=== PATIENT | male | born 1985 ===

== ENCOUNTER 2017-03-17 12:24 | Emergency (ER) | payer MEDICAID, OTHER ==
[2017-03-17 13:06] VITALS: RESP 16; BMI 23.6
[2017-03-17] MEDS ORDERED: Sodium Chloride 0.9% 1,000 ML IV STA ×2 (13:29→13:40)
--- NOTE | 2017-03-17 14:02 | ED PDOC ---
Arrival/HPI - General Chief Complaint: GI Problem Time Seen by Provider: 03/17/17 13:28 Historian: Patient - History of Present Illness Narrative History of Present Illness (Text): 03/17/17 14:03 A 31 year old male presents to the emergency department complaining of abdominal pain and vomiting for the past two days. Patient reports he was drinking three days ago, fell asleep without eating and when he woke up the next morning was vomiting. Notes hematemesis and generalized weakness but denies any other complaints at this time. Patient came to emergency department last year for similar symptoms after drinking excessive amounts of alcohol. Patient reports he didn't follow up with waitstaff. Reports to taking medications for nausea. Admits to occasionally drinking. PMD: Dr. Ruiz Symptom Onset: Sudden Symptom Course: Unchanged Activities at Onset: Rest Context: Home Past Medical History - Provider Review Nursing Documentation Reviewed: Yes - Infectious Disease Hx of Infectious Diseases: None - Tetanus Immunization Tetanus Immunization: Unknown - Past Medical History Past Medical History: Non-Contributing - Cardiac Hx Cardiac Disorders: No - Pulmonary Hx Asthma: Yes - Neurological Hx Neurological Disorder: No - HEENT Hx HEENT Disorder: No - Renal Hx Renal Disorder: No - Endocrine/Metabolic Hx Endocrine Disorders: No - Hematological/Oncological Hx Blood Disorders: No - Integumentary Hx Eczema: Yes - Musculoskeletal/Rheumatological Hx Falls: No - Gastrointestinal Hx Gastrointestinal Disorders: No - Genitourinary/Gynecological Hx Genitourinary Disorders: No - Psychiatric Hx Depression: No Hx Emotional Abuse: No Hx Physical Abuse: No Hx Substance Use: Yes - Past Surgical History Past Surgical History: No Previous - Anesthesia Hx Anesthesia: No Hx Anesthesia Reactions: No Hx Malignant Hyperthermia: No - Suicidal Assessment Feels Threatened In Home Enviroment: No Family/Social History - Physician Review Nursing Documentation Reviewed: Yes Family/Social History: No Known Family HX Smoking Status: Former Smoker Hx Alcohol Use: Yes Hx Substance Use: Yes Substance used: cannabis Hx Substance Use Treatment: No Allergies/Home Meds Allergies/Adverse Reactions: Allergies shellfish derived Allergy (Verified 08/12/16 19:37) RASH Review of Systems - Physician Review All systems were reviewed & negative as marked: Yes - Review of Systems Constitutional: Other (generalized weakness) Gastrointestinal: Abdominal Pain, Nausea, Vomiting, Hematemesis Physical Exam Vital Signs Reviewed: Yes Vital Signs Temp Pulse Resp BP Pulse Ox 03/17/17 17:05 98 F 82 16 140/90 99 03/17/17 14:30 76 16 165/90 H 98 03/17/17 13:02 98.2 F 56 L 16 183/94 H 99 Temperature: Afebrile Blood Pressure: Hypertensive Pulse: Bradycardic Respiratory Rate: Normal Appearance: Positive for: Well-Appearing, Non-Toxic, Comfortable Pain Distress: None Mental Status: Positive for: Alert and Oriented X 3 - Systems Exam Head: Present: Atraumatic, Normocephalic Pupils: Present: PERRL Extroacular Muscles: Present: EOMI Conjunctiva: Present: Normal Mouth: Present: Moist Mucous Membranes Neck: Present: Normal Range of Motion Respiratory/Chest: Present: Clear to Auscultation, Good Air Exchange. No: Respiratory Distress, Accessory Muscle Use Cardiovascular: Present: Regular Rate and Rhythm, Normal S1, S2. No: Murmurs Abdomen: Present: Tenderness (epigastric), Normal Bowel Sounds. No: Distention , Peritoneal Signs Back: Present: Normal Inspection Upper Extremity: Present: Normal Inspection. No: Cyanosis, Edema Lower Extremity: Present: Normal Inspection. No: Edema Neurological: Present: GCS=15, CN II-XII Intact, Speech Normal Skin: Present: Warm, Dry, Normal Color. No: Rashes Psychiatric: Present: Alert, Oriented x 3, Normal Insight, Normal Concentration Medical Decision Making ED Course and Treatment: 03/17/17 13:59 Impression: A 31 year old male with abdominal pain, nausea and vomiting. Differential Diagnosis included but are not limited to: Plan: -- chest xray -- labs -- Pepcid, Zofran, IV fluids -- Reassess and disposition Prior Visits: Notes and results from previous visits were reviewed. Patient last reported to the emergency department on 08/13/16 for evaluation of abdominal pain, nausea and vomiting. Progress Notes: 03/17/17 14:24 chest xray: Creator : Jatin Mckeon MD IMPRESSION: No active disease. No evidence of free air. - Lab Interpretations Lab Results: 03/17/17 14:20 03/17/17 14:20 Lab Results 03/17/17 14:20: Alcohol, Quantitative < 10 03/17/17 14:20: Sodium 142, Potassium 3.5 L, Chloride 100, Carbon Dioxide 27, Anion Gap 19, BUN 19, Creatinine 0.8, Est GFR ( Amer) > 60, Est GFR (Non- Af Amer) > 60, Random Glucose 106, Calcium 10.3, Total Bilirubin 1.6 H, AST 30, ALT 29, Alkaline Phosphatase 55, Total Protein 9.0 H, Albumin 5.2 H, Globulin 3.8, Albumin/Globulin Ratio 1.4, Amylase 209 H, Lipase 417 H 03/17/17 14:20: WBC 9.3, RBC 4.75, Hgb 15.7, Hct 43.4, MCV 91.4, MCH 33.1, MCHC 36.2, RDW 12.4, Plt Count 285, MPV 11.2 H, Gran % 72.0 H, Lymph % (Auto) 17.6 L , Powell % (Auto) 10.0 H, Eos % (Auto) 0.2 L, Baso % (Auto) 0.2, Gran # 6.67 H, Lymph # 1.6, Powell # 0.9 H, Eos # 0.0, Baso # 0.02 I have reviewed the lab results: Yes - RAD Interpretation Radiology Orders: 03/17/17 13:29 CHEST PORTABLE [RAD] Stat - Medication Orders Current Medication Orders: Discontinued Medications Famotidine (Pepcid) 20 mg IVP STAT STA Stop: 03/17/17 13:30 Last Admin: 03/17/17 14:12 Dose: 20 mg Sodium Chloride (Sodium Chloride 0.9%) 1,000 mls @ 1,000 mls/hr IV .Q1H STA Stop: 03/17/17 14:28 Last Admin: 03/17/17 13:40 Dose: 1,000 mls/hr Sodium Chloride (Sodium Chloride 0.9%) 1,000 mls @ 999 mls/hr IV .Q1H1M STA Stop: 03/17/17 14:40 Last Admin: 03/17/17 14:12 Dose: 999 mls/hr Ondansetron HCl (Zofran Inj) 4 mg IVP STAT STA Stop: 03/17/17 13:30 Last Admin: 03/17/17 14:12 Dose: 4 mg - Scribe Statement The provider has reviewed the documentation as recorded by the Sandra Santana Provider Scribe Attestation: All medical record entries made by the Scribe were at my direction and personally dictated by me. I have reviewed the chart and agree that the record accurately reflects my personal performance of the history, physical exam, medical decision making, and the department course for this patient. I have also personally directed, reviewed, and agree with the discharge instructions and disposition. Disposition/Present on Arrival - Present on Arrival Any Indicators Present on Arrival: No History of DVT/PE: No History of Uncontrolled Diabetes: No Urinary Catheter: No History of Decub. Ulcer: No History Surgical Site Infection Following: None - Disposition Have Diagnosis and Disposition been Completed?: Yes Diagnosis: Gastritis, Pancreatitis Disposition Time: 15:30 Patient Problems: Current Active Problems Problem Status Onset Gastritis Acute Pancreatitis Acute Condition: IMPROVED Discharge Instructions (ExitCare): Gastritis (ED) Additional Instructions: Thank you for letting us take care of you today. Your provider was Dr. Piper. You were treated for gastritis. The emergency medical care you received today was directed at your acute symptoms. If you were prescribed any medication, please fill it and take as directed. It may take several days for your symptoms to resolve. Return to the Emergency Department if your symptoms worsen, do not improve, or if you have any other problems. Please contact your doctor or call one of the physicians/clinics you have been referred to that are listed on the Patient Visit Information form that is included in your discharge packet. Bring any paperwork you were given at discharge with you along with any medications you are taking to your follow up visit. Our treatment cannot replace ongoing medical care by a primary care provider (PCP) outside of the emergency department. Thank you for allowing the [facility] team to be part of your care today. Follow up with your doctor in 2-3 days for re-evaluation. You need to cut down on the amount of alcohol you consume. Prescriptions: RX: Ondansetron ODT [Zofran ODT] 8 mg PO DAILY #14 odt Ranitidine HCl [Zantac] 150 mg PO BID #20 tablet Referrals: José Miguel Ruiz [Primary Care Provider] - Follow up with primary
--- NOTE | 2017-03-17 14:22 | RAD ---
HISTORY: r/o free air COMPARISON: 07/19/2012 FINDINGS: LUNGS: No active pulmonary disease. PLEURA: No significant pleural effusion identified, no pneumothorax apparent. CARDIOVASCULAR: Normal. OSSEOUS STRUCTURES: No significant abnormalities. VISUALIZED UPPER ABDOMEN: Normal. OTHER FINDINGS: None. IMPRESSION: No active disease. No evidence of free air
[2017-03-17 14:42] LABS: BASO # 0.02 K/mm3 (0.0-2.0); BASO % 0.2 % (0.0-3.0); EOS % 0.2 % (1.5-5.0); GRAN # 6.67 (1.4-6.5); HEMOGLOBIN 15.7 gm/dL (14.0-18.0); LYMPH # 1.6 (1.2-3.4); LYMPH % 17.6 % (22.0-35.0); MEAN CELL VOLUME 91.4 fL (80.0-105.0); MEAN CORPUSCULAR HEMOGLOBIN 33.1 pg (25.0-35.0); MEAN CORPUSCULAR HGB CONC 36.2 g/dl (31.0-37.0); MEAN PLATELET VOLUME 11.2 fl (7.0-11.0); MONO # 0.9 (0.1-0.6); PLATELET COUNT 285 10^3/uL (120.0-450.0); RBC 4.75 10^6/uL (3.5-6.1); RED CELL DISTRIBUTION WIDTH 12.4 % (11.5-14.5); WHITE BLOOD COUNT 9.3 10^3/ul (4.5-11.0)
[2017-03-17 15:06] LABS: ALB/GLOB RATIO 1.4 (1.1-1.8); ALBUMIN 5.2 g/dL (3.0-4.8); ALT/SGPT 29 U/L (7-56); AMYLASE 209 U/L (35-125); AST/SGOT 30 U/L (15-59); BLOOD UREA NITROGEN 19 mg/dL (7-21); CALCIUM 10.3 mg/dL (8.4-10.5); GFR AFRICAN-AMERICAN > 60; GFR NON-AFRICAN AMERICAN > 60; LIPASE 417 U/L (23-300)
[2017-03-17 17:11] VITALS: PULSE 82; O2SAT 99
[2017-03-17 17:14] VITALS: BP 140/90; TEMP 98
== END 2017-03-17 17:19 | disposition home or self-care (01) ==
LOC: ED 12:24
DX: K29.70 Gastritis, unspecified, without bleeding (principal); K85.90 Acute pancreatitis without necrosis or infection, unspecified
CPT/HCPCS: 71010; 80053; 82150; 83690; 85025; 96361; 96374; 96375; 99284; G0480; J2405; J7040

== ENCOUNTER 2018-02-14 15:37 | Emergency (ER) | payer OTHER ==
--- NOTE | 2018-02-14 16:23 | ED PDOC ---
Arrival/HPI - General Time Seen by Provider: 02/14/18 16:22 Historian: Patient - History of Present Illness Narrative History of Present Illness (Text): 02/14/18 16:23 This 32 yo male who denies pmh presents to this Emergency department complaining of ricardo-umbilical abdominal pain x 2 days. Patient stated that pain started after drinking alcohol the night before. Patient noted feeling mild nauseous. Patient denies vomiting, diarrhea, sob, cp, or urinary symptoms. Time/Duration: Other (see hpi) Quality: Aching Context: Home Past Medical History - Provider Review Nursing Documentation Reviewed: Yes - Infectious Disease Hx of Infectious Diseases: None - Tetanus Immunization Tetanus Immunization: Unknown - Past Medical History Past Medical History: Non-Contributing - Cardiac Hx Cardiac Disorders: No - Pulmonary Hx Asthma: Yes - Neurological Hx Neurological Disorder: No - HEENT Hx HEENT Disorder: No - Renal Hx Renal Disorder: No - Endocrine/Metabolic Hx Endocrine Disorders: No - Hematological/Oncological Hx Blood Disorders: No - Integumentary Hx Eczema: Yes - Musculoskeletal/Rheumatological Hx Falls: No - Gastrointestinal Hx Gastrointestinal Disorders: No - Genitourinary/Gynecological Hx Genitourinary Disorders: No - Psychiatric Hx Depression: No Hx Emotional Abuse: No Hx Physical Abuse: No Hx Substance Use: Yes - Past Surgical History Past Surgical History: No Previous - Anesthesia Hx Anesthesia: No Hx Anesthesia Reactions: No Hx Malignant Hyperthermia: No - Suicidal Assessment Feels Threatened In Home Enviroment: No Family/Social History - Physician Review Nursing Documentation Reviewed: Yes Family/Social History: Other (noncontributory) Smoking Status: Former Smoker Hx Alcohol Use: Yes Hx Substance Use: Yes Substance used: cannabis Hx Substance Use Treatment: No Allergies/Home Meds Allergies/Adverse Reactions: Allergies shellfish derived Allergy (Verified 02/14/18 16:35) RASH Review of Systems - Review of Systems Constitutional: Normal. absent: Fatigue, Weight Change, Fevers Eyes: Normal ENT: Normal Respiratory: Normal. absent: SOB, Cough Cardiovascular: Normal Gastrointestinal: Abdominal Pain. absent: Constipation, Diarrhea, Nausea, Vomiting Genitourinary Male: Normal. absent: Dysuria, Frequency, Hematuria Musculoskeletal: Normal. absent: Back Pain, Neck Pain Skin: Normal. absent: Rash Neurological: Normal. absent: Headache, Dizziness, Focal Weakness, Gait Changes , Speech Changes, Facial Droop, Disequilibrium Endocrine: Normal Hemo/Lymphatic: Normal Psychiatric: Normal Physical Exam Vital Signs Temp Pulse Resp BP Pulse Ox 02/14/18 18:05 62 17 129/80 98 02/14/18 16:26 98.5 F 60 20 133/76 98 Temperature: Afebrile Blood Pressure: Normal Pulse: Regular Respiratory Rate: Normal Appearance: Positive for: Well-Appearing, Non-Toxic, Comfortable Pain Distress: None Mental Status: Positive for: Alert and Oriented X 3 - Systems Exam Head: Present: Atraumatic, Normocephalic Pupils: Present: PERRL Extroacular Muscles: Present: EOMI Conjunctiva: Present: Normal Mouth: Present: Moist Mucous Membranes Neck: Present: Normal Range of Motion Respiratory/Chest: Present: Clear to Auscultation, Good Air Exchange. No: Respiratory Distress, Accessory Muscle Use Cardiovascular: Present: Regular Rate and Rhythm, Normal S1, S2. No: Murmurs Abdomen: Present: Tenderness (Very mild right lower quadrant abdominal tenderness. No rebound or guarding). No: Distention, Peritoneal Signs, Rebound , Guarding Back: Present: Normal Inspection. No: CVA Tenderness Upper Extremity: Present: Normal Inspection, Normal ROM, NORMAL PULSES, Neurovascularly Intact, Capillary Refill < 2s. No: Cyanosis, Edema Lower Extremity: Present: Normal Inspection, NORMAL PULSES, Normal ROM, Neurovascularly Intact, Capillary Refill < 2 s. No: Edema Neurological: Present: GCS=15, CN II-XII Intact, Speech Normal, Motor Func Grossly Intact, Normal Sensory Function, Normal Cerebellar Funct, Gait Normal Skin: Present: Warm, Dry, Normal Color. No: Rashes Psychiatric: Present: Alert, Oriented x 3, Normal Insight, Normal Concentration Medical Decision Making ED Course and Treatment: 02/14/18 19:00 Mild leukocytosis probably due to vomiting. Re-evaluation. Patient feels better. Discussed results and plan with patient who expresses understanding. All questions answered and there is agreement with the plan to discharge home with instructions. Patient stable for discharge. Return if symptoms persist or worsen. Patient was recommended to see his doctor tomorrow. To stop drinking alcohol. Patient was recommended to return to Emergency department if symptoms worsen. Re-evaluation Time: 19:02 Reassessment Condition: Re-examined, Improved - Lab Interpretations Lab Results: 02/14/18 16:30 02/14/18 16:30 Lab Results 02/14/18 18:37: Urine Color Yellow, Urine Appearance Clear, Urine pH 7.0, Ur Specific [place] <= 1.005, Urine Protein 30 H, Urine Glucose (UA) Negative, Urine Ketones 15 H, Urine Blood Trace-intact H, Urine Nitrate Negative, Urine Bilirubin Negative, Urine Urobilinogen 0.2, Ur Leukocyte Esterase Negative, Urine RBC Pending, Urine WBC Pending 02/14/18 16:30: Sodium 146, Potassium 4.0, Chloride 101, Carbon Dioxide 27, Anion Gap 23 H, BUN 20, Creatinine 0.8, Est GFR ( Amer) > 60, Est GFR ( Non-Af Amer) > 60, Random Glucose 111 H, Calcium 10.1, Magnesium 2.2, Total Bilirubin 0.9, AST 35, ALT 36, Alkaline Phosphatase 62, Total Protein 9.1 H, Albumin 5.1 H, Globulin 4.0, Albumin/Globulin Ratio 1.3, Lipase 164 02/14/18 16:30: WBC 14.0 H D, RBC 4.90, Hgb 15.7, Hct 44.8, MCV 91.4, MCH 32.0, MCHC 35.0, RDW 13.6, Plt Count 348, MPV 10.7, Gran % 77.1 H, Lymph % (Auto) 12.8 L, Harlan % (Auto) 9.5 H, Eos % (Auto) 0.5 L, Baso % (Auto) 0.1, Gran # 10.81 H, Lymph # (Auto) 1.8, Harlan # (Auto) 1.3 H, Eos # (Auto) 0.1, Baso # (Auto ) 0.02 I have reviewed the lab results: Yes - RAD Interpretation Narrative RAD Interpretations (Text): 02/14/18 18:15 PROCEDURE: CT Abdomen and Pelvis with contrast HISTORY: RLQ pain r/o appy COMPARISON: 08/12/2016 TECHNIQUE: Contrast dose: 100 mL Omnipaque 350 Radiation dose: Total exam DLP = 258.43 mGy-cm. This CT exam was performed using one or more of the following dose reduction techniques: Automated exposure control, adjustment of the mA and/or kV according to patient size, and/or use of iterative reconstruction technique. FINDINGS: LOWER THORAX: Unremarkable. LIVER: Unremarkable. No gross lesion or ductal dilatation. GALLBLADDER AND BILE DUCTS: Unremarkable. PANCREAS: Unremarkable. No gross lesion or ductal dilatation. SPLEEN: Unremarkable. ADRENALS: Unremarkable. No mass. KIDNEYS AND URETERS: Unremarkable. No hydronephrosis. No solid mass. VASCULATURE: Unremarkable. No aortic aneurysm. BOWEL: Unremarkable. No obstruction. No gross mural thickening. APPENDIX: Normal appendix not identified. No secondary findings to suggest acute appendicitis. Radiology Orders: 02/14/18 16:25 ABD & PELVIS IV CONTRAST ONLY [CT] Stat - Medication Orders Current Medication Orders: Discontinued Medications Sodium Chloride (Sodium Chloride 0.9%) 1,000 mls @ 999 mls/hr IV .Q1H1M STA Stop: 02/14/18 17:25 Last Admin: 02/14/18 16:45 Dose: 999 mls/hr eMAR Start Stop Document 02/14/18 16:45 EWO (Rec: 02/14/18 16:45 [email or web address] Intravenous Solution Start Date 02/14/18 Start Time 16:45 End Date 02/14/18 End time 17:45 Total Infusion Time 60 Ondansetron HCl (Zofran Inj) 4 mg IVP STAT STA Stop: 02/14/18 16:26 Last Admin: 02/14/18 16:45 Dose: 4 mg IVP Administration Document 02/14/18 16:45 EWO (Rec: 02/14/18 16:45 [email or web address] Charges for Administration # of IVP Administrations 1 Disposition/Present on Arrival - Present on Arrival Any Indicators Present on Arrival: No History of DVT/PE: No History of Uncontrolled Diabetes: No Urinary Catheter: No History Surgical Site Infection Following: None - Disposition Have Diagnosis and Disposition been Completed?: Yes Diagnosis: Nonspecific abdominal pain, Nausea & vomiting Disposition: HOME/ ROUTINE Disposition Time: 19:02 Patient Plan: Discharge Condition: GOOD Discharge Instructions (ExitCare): Nausea and Vomiting, Adult (DC) Additional Instructions: Call private doctor for follow up visit in 1-2 days. Take medication as instructed. Eat healthy meals, and drink enough fluids. Avoid drinking alcohol , fatty meals, spicy food, or coffee till symptoms improves. You should quit drinking alcohol. Return to emergency if symptoms worsen. Prescriptions: Famotidine [Pepcid] 40 mg PO DAILY #10 tablet Ondansetron ODT [Zofran ODT] 4 mg PO Q4H PRN #15 odt PRN Reason: Nausea/Vomiting Referrals: Soco Keating MD [Primary Care Provider] - Follow up with primary Forms: WORK NOTE
[2018-02-14 16:25] VITALS: BMI 22.8
[2018-02-14] MEDS ORDERED: Sodium Chloride 0.9% 1,000 ML IV STA (16:25)
[2018-02-14 16:30] VITALS: TEMP 98.5
[2018-02-14 16:52] LABS: BASO # 0.02 K/mm3 (0.0-2.0); BASO % 0.1 % (0.0-3.0); EOS # 0.1 (0.0-0.7); EOS % 0.5 % (1.5-5.0); GRAN # 10.81 (1.4-6.5); GRAN % 77.1 % (50.0-68.0); HEMOGLOBIN 15.7 g/dL (14.0-18.0); LYMPH # 1.8 (1.2-3.4); LYMPH % 12.8 % (22.0-35.0); MEAN CELL VOLUME 91.4 fl (80.0-105.0); MEAN PLATELET VOLUME 10.7 fl (7.0-11.0); MONO # 1.3 (0.1-0.6); MONO % 9.5 % (1.0-6.0); RBC 4.9 10^6/uL (3.5-6.1); RED CELL DISTRIBUTION WIDTH 13.6 % (11.5-14.5)
[2018-02-14 17:01] LABS: ALB/GLOB RATIO 1.3 (1.1-1.8); ALBUMIN 5.1 g/dL (3.0-4.8); ALT/SGPT 36 U/L (7-56); AST/SGOT 35 U/L (17-59); BLOOD UREA NITROGEN 20 mg/dL (7-21); CALCIUM 10.1 mg/dL (8.4-10.5); GFR AFRICAN-AMERICAN > 60; GFR NON-AFRICAN AMERICAN > 60; LIPASE 164 U/L (23-300)
[2018-02-14] MEDS ORDERED: Iohexol 350 MG/100 ML VIAL ONE (17:37)
--- NOTE | 2018-02-14 18:13 | CT ---
PROCEDURE: CT Abdomen and Pelvis with contrast HISTORY: RLQ pain r/o appy COMPARISON: 08/12/2016 TECHNIQUE: Contrast dose: 100 mL Omnipaque 350 Radiation dose: Total exam DLP = 258.43 mGy-cm. This CT exam was performed using one or more of the following dose reduction techniques: Automated exposure control, adjustment of the mA and/or kV according to patient size, and/or use of iterative reconstruction technique. FINDINGS: LOWER THORAX: Unremarkable. LIVER: Unremarkable. No gross lesion or ductal dilatation. GALLBLADDER AND BILE DUCTS: Unremarkable. PANCREAS: Unremarkable. No gross lesion or ductal dilatation. SPLEEN: Unremarkable. ADRENALS: Unremarkable. No mass. KIDNEYS AND URETERS: Unremarkable. No hydronephrosis. No solid mass. VASCULATURE: Unremarkable. No aortic aneurysm. BOWEL: Unremarkable. No obstruction. No gross mural thickening. APPENDIX: Normal appendix not identified. No secondary findings to suggest acute appendicitis. PERITONEUM: Unremarkable. No free fluid. No free air. LYMPH NODES: Unremarkable. No enlarged lymph nodes. BLADDER: Unremarkable. REPRODUCTIVE: Normal prostate BONES: No acute fracture. OTHER FINDINGS: None. IMPRESSION: No evidence of acute appendicitis. Unremarkable examination.
[2018-02-14 18:45] LABS: URINE BILIRUBIN NEGATIVE (NEGATIVE); URINE BLOOD TRACE-INTACT (NEGATIVE); URINE GLUCOSE (UA) NEGATIVE (NEGATIVE); URINE LEUKOCYTE ESTERASE NEGATIVE Leu/uL (NEGATIVE); URINE PROTEIN 30 mg/dL (<30 mg/dL); URINE UROBILINOGEN 0.2 E.U./dL (<1 E.U./dL)
[2018-02-14 18:48] LABS: URINE APPEARANCE CLEAR (CLEAR); URINE COLOR YELLOW (YELLOW)
[2018-02-14 19:08] LABS: URINE BACTERIA FEW (NEG); URINE WBC 0 - 2 /hpf (0-6)
[2018-02-14 19:17] VITALS: BP 128/78; PULSE 65; RESP 18; O2SAT 99
== END 2018-02-14 19:16 | disposition home or self-care (01) ==
LOC: ED 15:37
DX: R11.2 Nausea with vomiting, unspecified (principal); R10.31 Right lower quadrant pain
CPT/HCPCS: 74177; 80053; 81001; 83690; 83735; 85025; 96361; 96374; 99285; J2405; J7030; Q9967

== ENCOUNTER 2018-06-14 09:58 | Emergency (ER) | payer MEDICAID, OTHER ==
[2018-06-14 09:58] VITALS: BMI 22.8
[2018-06-14] MEDS ORDERED: Sodium Chloride 0.9% 1,000 ML IV STA ×2 (10:57→15:49)
--- NOTE | 2018-06-14 10:57 | ED PDOC ---
Arrival/HPI - General Chief Complaint: GI Problem Time Seen by Provider: 06/14/18 10:52 Historian: Patient - History of Present Illness Narrative History of Present Illness (Text): 32yo male, otherwise well, comes to ER for evaluation of persistent nausea, vomiting and sweats since this morning. Patient [place] and was drinking heavily; patient states he has not eaten anything and is unable to tolerate PO intake. Patient reports associated epigastric abdominal pain. He denies any blood in his emesis. Otherwise, no fever, chills, chest pain, or shortness of breath. No additional medical complaints. Time/Duration: 4-6 hours Symptom Onset: Gradual Past Medical History - Provider Review Nursing Documentation Reviewed: Yes - Infectious Disease Hx of Infectious Diseases: None - Tetanus Immunization Tetanus Immunization: Unknown - Past Medical History Past Medical History: Non-Contributing - Cardiac Hx Cardiac Disorders: No - Pulmonary Hx Respiratory Disorders: Yes Hx Asthma: Yes - Neurological Hx Neurological Disorder: No - HEENT Hx HEENT Disorder: No - Renal Hx Renal Disorder: No - Endocrine/Metabolic Hx Endocrine Disorders: No - Hematological/Oncological Hx Blood Disorders: No - Integumentary Hx Eczema: Yes - Musculoskeletal/Rheumatological Hx Musculoskeletal Disorders: No - Gastrointestinal Hx Gastrointestinal Disorders: No - Genitourinary/Gynecological Hx Genitourinary Disorders: No - Psychiatric Hx Psychophysiologic Disorder: No Hx Substance Use: Yes - Past Surgical History Past Surgical History: No Previous - Anesthesia Hx Anesthesia: No Hx Anesthesia Reactions: No Hx Malignant Hyperthermia: No - Suicidal Assessment Feels Threatened In Home Enviroment: No Family/Social History - Physician Review Nursing Documentation Reviewed: Yes Family/Social History: No Known Family HX Smoking Status: Former Smoker Hx Alcohol Use: Yes Hx Substance Use: Yes Substance used: cannabis Hx Substance Use Treatment: No Allergies/Home Meds Allergies/Adverse Reactions: Allergies shellfish derived Allergy (Verified 06/14/18 10:11) RASH Review of Systems - Physician Review All systems were reviewed & negative as marked: Yes (as per HPI) - Review of Systems Constitutional: absent: Fevers Respiratory: absent: SOB Cardiovascular: absent: Chest Pain Gastrointestinal: Abdominal Pain, Vomiting, Food Intolerance Physical Exam - Physical Exam Narrative Physical Exam (Text): Gen: VS reviewed, alert, nontoxic, mild distress. ENT: normal pharynx. Eye: EOMI, PERRL. Neck: no JVD, supple, no adenopathy. CV: regular rate, regular rhythm, no rubs, no murmur, no gallops, S1, S2, pulses equal and strong. Pulm: no distress, clear to auscultation, no wheeze, no rhonchi, breath sounds equal, no rales. Abd: soft, (+)mild epigastric tenderness, no guarding, no rebound, no rigidity, normal bowel sounds. Ext: no edema. Skin: good color, no rash, no cyanosis. Psych: responds appropriately to questions, normal affect. Neuro: oriented x 3, CN2-12 intact grossly, motor intact, sensation intact. Vital Signs Temp Pulse Resp BP Pulse Ox 06/14/18 10:12 98.5 F 74 16 156/105 H 99 Medical Decision Making ED Course and Treatment: Impression: 32yo male with vomiting, abdominal pain Plan: -- IV Fluids -- Labs -- EKG -- Zofran 4mg IV -- Reassess and disposition Prior Visits: Notes and results from previous visits were reviewed. Patient was last seen in the emergency department on 02/14/18 for abdominal pain and vomiting; patient had a CT Abdomen done with no acute findings. Progress Notes: 06/14/18 17:47 patient observed for several hours and feels better and ready to go home at this time. patient seen for acute vomiting after heavy day of drinking. labs ok and patient remained stable throughout Ed course. patient to be discharged home with antacid and antiemetic. - EKG Interpretation EKG Interpretation (Text): 06/14/18 11:50 1139: sinus tj ar 54 bpm, nml qrs, lvh, no acute sttw abn Interpreted by ED Physician: Yes - Scribe Statement The provider has reviewed the documentation as recorded by the Sandra Huertas Provider Scribe Attestation: All medical record entries made by the Sandra were at my direction and personally dictated by me. I have reviewed the chart and agree that the record accurately reflects my personal performance of the history, physical exam, medical decision making, and the department course for this patient. I have also personally directed, reviewed, and agree with the discharge instructions and disposition. Disposition/Present on Arrival - Present on Arrival Any Indicators Present on Arrival: No History of DVT/PE: No History of Uncontrolled Diabetes: No Urinary Catheter: No History of Decub. Ulcer: No History Surgical Site Infection Following: None - Disposition Have Diagnosis and Disposition been Completed?: Yes Diagnosis: Alcoholic gastritis Disposition: HOME/ ROUTINE Disposition Time: 17:48 Patient Plan: Discharge Condition: STABLE Discharge Instructions (ExitCare): Gastritis Prescriptions: Omeprazole Magnesium [Prilosec Otc] 20 mg PO DAILY #14 tablet. Ondansetron [Zofran] 4 mg PO Q8H #12 tab Referrals: Soco Keating MD [Primary Care Provider] - Follow up with primary Forms: [employer] ([place])
[2018-06-14 11:34] LABS: BASO # 0.05 K/mm3 (0.0-2.0); BASO % 0.4 % (0.0-3.0); EOS # 0.4 (0.0-0.7); EOS % 2.9 % (1.5-5.0); GRAN # 10.04 (1.4-6.5); GRAN % 76.4 % (50.0-68.0); HEMOGLOBIN 15.3 g/dL (14.0-18.0); LYMPH # 1.7 (1.2-3.4); LYMPH % 12.5 % (22.0-35.0); MEAN CELL VOLUME 92.9 fl (80.0-105.0); MEAN CORPUSCULAR HEMOGLOBIN 32.8 pg (25.0-35.0); MEAN CORPUSCULAR HGB CONC 35.3 g/dl (31.0-37.0); MEAN PLATELET VOLUME 10.1 fl (7.0-11.0); MONO % 7.8 % (1.0-6.0); RBC 4.67 10^6/uL (3.5-6.1); RED CELL DISTRIBUTION WIDTH 12.9 % (11.5-14.5); WHITE BLOOD COUNT 13.2 10^3/ul (4.5-11.0)
[2018-06-14 11:36] LABS: ALB/GLOB RATIO 1.4 (1.1-1.8); ALT/SGPT 37 U/L (7-56); AST/SGOT 44 U/L (17-59); BLOOD UREA NITROGEN 9 mg/dL (7-21); CALCIUM 10.6 mg/dL (8.4-10.5); GFR NON-AFRICAN AMERICAN > 60; LIPASE 94 U/L (23-300)
[2018-06-14 17:10] VITALS: TEMP 98.5
[2018-06-14 18:07] VITALS: BP 130/81; PULSE 58; RESP 16; O2SAT 99
--- NOTE | 2018-06-15 06:37 | CARD ---
APPROVED REPORT Date of service: 06/14/2018 EKG Measurement Heart [id number] RI [id number] <Conclusion> Sinus bradycardia Moderate voltage criteria for LVH, may be normal variant Borderline ECG
== END 2018-06-14 18:05 | disposition home or self-care (01) ==
LOC: ED 09:58
DX: K29.20 Alcoholic gastritis without bleeding (principal); Z87.891 Personal history of nicotine dependence
CPT/HCPCS: 80053; 83690; 83735; 85025; 93005; 96361; 96374; 96375; 96376; 99284; J1885; J2405; J7030

== ENCOUNTER 2018-10-21 14:33 | Inpatient (IN) | payer OTHER | END 2018-10-23 15:24 | LOC: 2RSO 10-23 06:55 → ED 14:33 → 2RNO 10-23 11:30 → ERH 17:54 → 2RNO 20:33 ==